=== PATIENT | male | born 1955 | race Hispanic/Latino ===

== ENCOUNTER 2023-06-11 14:10 | Emergency (ER) | payer OTHER ==
[~2023-06-11] VITALS: Ht 175.3 cm; Wt 78.0 kg
[~2023-06-11 14:10] MED LIST: AMLO-258 PO; HYDR-4153 PO; IBUP-2784 PO; MAGN500C4 PO; MULT-1203 PO
[2023-06-11 14:23] VITALS: BP 121/61; PULSE 94; RESP 18; O2SAT 95
[2023-06-11 14:46] LABS: SARS-CoV-2, RNA, NAAT NEGATIVE SARS CoV-2 (NEGATIVE)
[2023-06-11 14:54] LABS: INFLUENZA TYPE A Negative For Type A (NEGATIVE); INFLUENZA TYPE B Negative For Type B (NEGATIVE)
== END 2023-06-11 15:12 | disposition home or self-care (01) ==
LOC: EDH 14:10
DX: B34.9 Viral infection, unspecified (principal); Z88.8 Allergy status to other drugs, medicaments and biological substances; Z20.822 Contact with and (suspected) exposure to COVID-19
CPT/HCPCS: 99285; 71045; 87635; 87804 ×2; 93005; C9803